=== PATIENT | female | born 1970 | race Caucasian/White ===

== ENCOUNTER 2022-08-21 02:53 | Day surgery (SDC) | payer OTHER, SELFPAY ==
[2022-08-14 14:04] VITALS: BMI 40.4
--- NOTE | 2022-08-20 13:11 | PM.HPGS ---
History of Present Illness History of Present Illness Consent: Risks, benefits, and alternatives have been discussed and questions answered. Patient agrees to proceed with procedure. Chief complaint: neoplasm screening Narrative: Diane Arreola is a 51 year old female referred for colon cancer screening. Has a history of polyps. Review of Systems Review of Systems: All systems reviewed & are unremarkable except as noted in HPI and below [facility] Social History Social History Smoking status: Never smoker Alcohol intake: current Alcohol use details: OCCASIONAL Substance use type: does not use Living arrangements: alone Spiritual care concerns: No Meds Home Medications and Allergies Home Medications Medication Instructions Recorded Confirmed Type amlodipine 2.5 mg tablet 2.5 mg PO DAILY 08/14/22 08/14/22 History atorvastatin 10 mg tablet 10 mg PO DAILY 08/14/22 08/14/22 History lisinopril 20 mg tablet 20 mg PO DAILY 08/14/22 08/14/22 History phentermine 37.5 mg tablet 37.5 mg PO DAILY 08/14/22 08/14/22 History valacyclovir 1 gram tablet 1,000 mg PO DAILY PRN Cold Sores 08/14/22 08/14/22 History Allergies Allergy/AdvReac Type Severity Reaction Status Date / Time ciprofloxacin Allergy Intermediate Other Verified 08/21/22 06:56 hydrophilic ointment Allergy Intermediate Other Verified 08/21/22 06:56 Sulfa (Sulfonamide Allergy Intermediate Hives / Verified 08/21/22 06:56 Antibiotics) Red Face zinc acetate Allergy Intermediate Other Verified 08/21/22 06:56 adhesive Allergy Unknown RASH Verified 08/21/22 06:56 latex Allergy Unknown HIVES Verified 08/21/22 06:56 nickel Allergy Unknown RASH Verified 08/21/22 06:56 code Allergy Intermediate Muscle Uncoded 08/21/22 06:56 Spasms Exam Const: General: alert Orientation/consciousness: patient oriented x3 Resp: Auscultation: clear to auscultation bilaterally Cardio: Rhythm: regular rhythm GI: GI Palp: Yes Soft to palpation and No Tenderness to palpation present (GI) Neuro: General: patient oriented x3 Assessment and Plan Assessment and plan (1) Colon cancer screening: Code(s): Z12.11 - Encounter for screening for malignant neoplasm of colon Status: Acute Assessment and Plan: Colonoscopy with possible biopsy or polypectomy or cautery or injection of substances.
[2022-08-21 06:57] VITALS: BP 112/80; PULSE 87; RESP 18; TEMP 35.9; O2SAT 97
[2022-08-21] MEDS: LACTATED RINGERS 1,000 ML 150 ML IV CONT (07:06)
--- NOTE | 2022-08-21 08:03 | P.PNAN_ITS ---
Anes - Initial Pre Proc Eval Procedure: Operation Date: 08/21/22 08:00 Proposed Procedures p Screening Colonoscopy - Aditya Ornelas MD Date/Time: 08/21/22 08:03 Surgeon: Aditya Ornelas MD Pre Op Diagnosis: neoplasm screening Patient Data Age: 51 Gender: F Height: 1.68 m Weight: 112.9 kg Last Vital Signs Temp 96.7 F L 08/21/22 06:57 Pulse 87 08/21/22 06:57 Resp 18 08/21/22 06:57 BP 112/80 08/21/22 06:57 Pulse Ox 97 08/21/22 06:57 O2 Del Method Room Air 08/21/22 06:57 Allergies Allergy/AdvReac Type Severity Reaction Status Date / Time ciprofloxacin Allergy Intermediate Other Verified 08/21/22 06:56 hydrophilic ointment Allergy Intermediate Other Verified 08/21/22 06:56 Sulfa (Sulfonamide Allergy Intermediate Hives / Verified 08/21/22 06:56 Antibiotics) Red Face zinc acetate Allergy Intermediate Other Verified 08/21/22 06:56 adhesive Allergy Unknown RASH Verified 08/21/22 06:56 latex Allergy Unknown HIVES Verified 08/21/22 06:56 nickel Allergy Unknown RASH Verified 08/21/22 06:56 code Allergy Intermediate Muscle Uncoded 08/21/22 06:56 Spasms Home Medications Medication Instructions Recorded Confirmed Type amlodipine 2.5 mg tablet 2.5 mg PO DAILY 08/14/22 08/14/22 History atorvastatin 10 mg tablet 10 mg PO DAILY 08/14/22 08/14/22 History lisinopril 20 mg tablet 20 mg PO DAILY 08/14/22 08/14/22 History phentermine 37.5 mg tablet 37.5 mg PO DAILY 08/14/22 08/14/22 History valacyclovir 1 gram tablet 1,000 mg PO DAILY PRN Cold Sores 08/14/22 08/14/22 History Patient hx anesthesia problems: none Family hx anesthesia problems: none Results Review: All pre-operative results and documents have been reviewed as part of the pre- operative evaluation. [facility] Social History Social History Smoking status: Never smoker Alcohol intake: current Alcohol use details: OCCASIONAL Substance use type: does not use Living arrangements: alone Spiritual care concerns: No Anes - Eval Final PreProcedure Day of Procedure 08/21/22 08:03 Patient weight: morbidly obese Heart: regular rate and rhythm Lungs: clear to auscultation Airway: Mallampati scale class II Neurological: alert and oriented Last oral intake: >/= 8 hours ASA classification: III Emergent: no Anesthetic plan: proceed Anesthesia type and monitoring: general GIVS and standard monitoring Results Review: All pre-operative results and documents have been reviewed as part of the pre- operative evaluation. Informed Consent: The patient's anesthetic plan and its attendant risks and benefits were discussed with the patient/family/POA. Questions were solicited and answers provided to the satisfaction of the patient/family/POA.
[2022-08-21 08:17] VITALS: BP 99/62; PULSE 74; RESP 19; O2SAT 100
[2022-08-21 08:27] VITALS: BP 101/66; PULSE 66; RESP 16; O2SAT 100
[2022-08-21 08:37] VITALS: BP 107/69; PULSE 65; RESP 15; O2SAT 100
[2022-08-21] MEDS: SIMETHICONE ORAL SUSPENSION 20 MG/0.3 ML 30 ML BOTTLE 0.6 ML IRRIGATION (09:07)
== END 2022-08-21 08:43 | disposition home or self-care (01) ==
PROVIDERS: PCP Family Medicine; Visit Provider Internal Medicine Gastroenterology
PROC: 0DJD8ZZ Inspection of Lower Intestinal Tract, Via Natural or Artificial Opening Endoscopic (ICD-10-PCS; CPT 45378; principal; 2022-08-21 08:00)
DX: Z12.11 Encounter for screening for malignant neoplasm of colon (principal); K57.30 Diverticulosis of large intestine without perforation or abscess without bleeding; E66.01 Morbid (severe) obesity due to excess calories; Z68.41 Body mass index [BMI] 40.0-44.9, adult
CPT/HCPCS: 45378; J2001; J2704; J7120